=== PATIENT | male | born 1950 | race Caucasian/White ===

== ENCOUNTER → 2019-12-14 | Outpatient (CLI) | payer OTHER | LOC: SJCVC 14:10 | PROVIDERS: ATTEND Internal Medicine | DX: R55 Syncope and collapse (principal); I10 Essential (primary) hypertension; I34.1 Nonrheumatic mitral (valve) prolapse; E78.5 Hyperlipidemia, unspecified; I44.7 Left bundle-branch block, unspecified; Z79.899 Other long term (current) drug therapy ==

== ENCOUNTER → 2020-01-08 | Outpatient (CLI) | payer OTHER | LOC: SJCVCIMAG 08:33 | PROVIDERS: ATTEND Internal Medicine | DX: I34.1 Nonrheumatic mitral (valve) prolapse (principal); I44.7 Left bundle-branch block, unspecified; E78.5 Hyperlipidemia, unspecified; I10 Essential (primary) hypertension; Z79.899 Other long term (current) drug therapy ==

== ENCOUNTER → 2020-01-14 | Outpatient (CLI) | payer OTHER | LOC: SJCVC 12:55 | PROVIDERS: ATTEND Internal Medicine Cardiovascular Disease | DX: R94.31 Abnormal electrocardiogram [ECG] [EKG] (principal); R00.1 Bradycardia, unspecified; I44.7 Left bundle-branch block, unspecified; R55 Syncope and collapse; E78.5 Hyperlipidemia, unspecified; I10 Essential (primary) hypertension; K21.9 Gastro-esophageal reflux disease without esophagitis ==

== ENCOUNTER → 2020-01-16 | Outpatient (CLI) | payer OTHER | LOC: LAB 08:58 | PROVIDERS: ATTEND Internal Medicine Cardiovascular Disease | DX: Z01.812 Encounter for preprocedural laboratory examination (principal); Z20.828 Contact with and (suspected) exposure to other viral communicable diseases ==

== ENCOUNTER 2020-01-21 08:02 | Observation (INO) | payer OTHER ==
[2020-01-21] VITALS (8 sets, daily range): BP systolic 128–143; BP diastolic 54–69
[~2020-01-21] VITALS: Ht 180.3 cm; Wt 79.8 kg
[2020-01-21] MEDS ORDERED: FAMOTIDINE 20 M20 MG PO (10:38)
[2020-01-21] MEDS ORDERED: FLONASE 0.05%50 MCG NASAL (10:39)
[2020-01-21] MEDS ORDERED: TOPROL XL50 MG PO (10:40)
[2020-01-21] MEDS ORDERED: ZOCOR20 MG PO (10:40)
[2020-01-21] MEDS ORDERED: DYAZIDE 37.5-21 EACH PO (10:42)
[2020-01-21 10:46] LABS: BASOPHILS 0.9 % (0.0-2.0); CALCIUM 9.5 mg/dL (8.5-10.1); EOSINOPHILS 3.6 % (0.0-3.0); HEMATOCRIT 48.8 % (42.0-52.0); LYMPHOCYTES 26.2 % (24.0-44.0); MCH 30.3 pg (26.0-34.0); MCHC 32.8 g/dL (28.0-37.0); MCV 92.3 fL (80.0-100.0); MONOCYTES 9.1 % (1.0-8.0); PLATELET COUNT 189 thou/uL (150-400); POLYS 60.2 % (36.0-66.0); RBC 5.28 mil/uL (4.50-6.00); RDW 13.6 % (10.5-14.5); WBC 4.9 thou/uL (4.0-11.0)
[2020-01-21 10:47] LABS: POTASSIUM 4.6 mmol/L (3.5-5.1)
[2020-01-21 10:53] LABS: ALBUMIN 4.3 g/dL (3.4-5.0); TOTAL BILIRUBIN 0.6 mg/dL (0.2-1.0); TOTAL PROTEIN 7.5 g/dL (6.4-8.2)
[2020-01-21 11:00] LABS: APTT 25.4 Seconds (24.5-32.8); INR 1.1; PROTIME 10.8 Seconds (9.3-11.4)
[2020-01-22 00:15] VITALS: BP 126/60
[2020-01-22 04:48] VITALS: BP 133/57
[2020-01-22 08:44] VITALS: BP 135/61
[2020-01-22 11:13] VITALS: BP 135/61
--- NOTE | 2020-01-25 10:42 | P ---
[facility] [place] [address] PROCEDURE REPORT Name: TY SHEFFIELD [facility] 208[facility]P [id number] Admission: 01/21/20 Attend Phys: Navin Mcintosh MD Discharge: 01/22/20 Date of : 52 Report #: [id number] THIS REPORT FOR: cc: Thom Robin MD, Neal A. MD Couchonnal, Luis F. MD ~ CC: Navin Robin DATE OF SERVICE: 01/21/2020 EP STUDY AND PACEMEKER IMPLANTATION PREOPERATIVE DIAGNOSES: 1. Syncope. 2. Left bundle-branch block. HISTORY: The patient is a 69-year-old male with history of multiple recurrent syncopal episodes and a preexisting left bundle-branch block. He has syncopal episodes that sound to be consistent with vasovagal syncope as well as others that sound to be arrhythmic in nature. He is here for EP study, possible pacemaker, possible ICD, possible implantable loop recorder insertion. ANESTHESIA: The patient underwent MAC anesthesia with no anesthesia related complications. DESCRIPTION OF PROCEDURE: The patient was brought to EP laboratory in a fasting and sedated state, prepped and draped in a sterile fashion. I injected lidocaine at the right groin and obtained access to the right femoral vein x 3, placing 6, 7 and 6-Mongolian short sheath using the modified Seldinger technique. Next, under fluoroscopy, 3 quadripolar catheters were placed at the HRA, His and RV position and a basic EP study was performed. At baseline, the patient was in sinus rhythm with a sinus cycle length of 995 milliseconds, ID interval 200 milliseconds, QRS duration 160 milliseconds with a left bundle branch block morphology, QT interval 465 milliseconds, ____ interval of 100 milliseconds, and an HV interval of 71 milliseconds. Next, atrial burst pacing and AV block was noted at 390 milliseconds and this was at the level of the AV node. Atrial ERP was noted at 310 milliseconds at a [address] cycle length. Ventricular ERP was noted at 270 milliseconds at a [address] cycle length and 240 milliseconds at a [address] cycle length. Ventricular stimulation was performed at 2 cycle lengths of 400 and 500 milliseconds respectively and there was no inducible VT. Based on his abnormal HV interval and prior syncopal episodes, I have recommended that we proceed with pacemaker implantation. The catheters were pulled from the groin and at the end of the case, the sheaths [facility] [address] [place] [address] PROCEDURE REPORT Name: TY SHEFFIELD Room #: 208-P [facility].#: [id number] Admission: 01/21/20 Attend Phys: Navin Mcintosh MD Discharge: 01/22/20 Date of : 52 Report #: [id number] were pulled. Hemostasis was obtained. The patient was prepped for pacemaker implantation, underwent a formal venogram showing patency of the right axillary vein as the patient is left handed. The patient received IV antibiotics. Next, lidocaine was injected below the level of left clavicle. Incision was made, pocket was created over the prepectoral fascia and access was obtained twice to the right axillary vein using the extrathoracic approach with sheaths positioned using the modified Seldinger technique. Next, under fluoroscopy, leads were positioned in the right ventricular apex and right atrial appendage both with adequate pacing and sensing thresholds. The leads were sutured to the prepectoral fascia. Device was connected. TUG test performed. The device was functioning normally. Pocket was irrigated with vancomycin. The pocket was closed in 2 layers using 2-0 for the deep layer, 3-0 for the middle layer and surgical glue was placed to outer skin. The patient awoke neurologically and hemodynamically intact. No complications and no significant bleeding. The implanted pacemaker was a Medtronic model #W3DR01, serial #[id number]. Atrial lead was a Medtronic model #5076, 45 cm, serial #[id number]. RV lead was a Medtronic model #5076, 52 cm, serial #[id number]. Atrial lead demonstrated a P-wave of 1.25 millivolts, pacing impedance of 437 ohms, pacing threshold of 0.75 volts at 0.4 milliseconds. The RV lead demonstrated R-wave of 7.5 millivolts, pacing impedance of 608 ohms and the pacing threshold of 0.75 volts at 0.4 milliseconds. The device was programmed to the AAI/DDD mode 50-130. I also programmed on rate drop response for a drop in the pulse of 25 beats to also manage any possible episodes of vasovagal syncope he may also experience. CONCLUSIONS: 1. Abnormal EP study with an HV interval of 71 milliseconds. 2. No inducible atrial arrhythmias, SVT or ventricular tachycardia. 3. Successful dual-chamber pacemaker implantation. 4. Satisfactory atrial and ventricular pacing and sensing thresholds. <ELECTRONICALLY SIGNED> By: Navin Mcintosh MD 01/25/20 1042 [id number] 15 Navin Mcintosh MD /nt
== END 2020-01-22 12:16 | disposition home or self-care (01) ==
LOC: CATH 08:02 → 2N 16:57
PROVIDERS: ADMIT Internal Medicine Cardiovascular Disease; ATTEND Internal Medicine Cardiovascular Disease
DX: R55 Syncope and collapse (principal); I44.7 Left bundle-branch block, unspecified
CPT/HCPCS: 62110; 62900; 70005

== ENCOUNTER → 2020-01-28 | Outpatient (CLI) | payer OTHER ==
[~2020-01-28] MED LIST: DYAZIDE 37.5-21 EACH PO; FAMOTIDINE 20 M20 MG PO; FLONASE 0.05%50 MCG NASAL; TOPROL XL50 MG PO; ZOCOR20 MG PO
== END ==
LOC: SJCVC 10:53
PROVIDERS: ATTEND Internal Medicine Cardiovascular Disease
DX: R94.31 Abnormal electrocardiogram [ECG] [EKG] (principal); I44.7 Left bundle-branch block, unspecified; R55 Syncope and collapse; I10 Essential (primary) hypertension; I34.1 Nonrheumatic mitral (valve) prolapse; E78.5 Hyperlipidemia, unspecified; Z79.899 Other long term (current) drug therapy